=== PATIENT | male | born 1955 | race Caucasian/White ===

== ENCOUNTER 2023-07-14 07:41 | Emergency (ER) | payer MEDICARE, OTHER, SELFPAY ==
[2023-07-14 07:57] VITALS: BP 164/92
[2023-07-14] MEDS: DECADRON 10 MG PO (09:27)
[2023-07-14] MEDS: TORADOL 30 MG IM (09:27)
[2023-07-14] MEDS: VALIUM 5 MG PO (09:27)
--- NOTE | 2023-07-14 09:32 | ED.GENMED ---
History of Present Illness
General
Chief Complaint: Back Pain
Source: patient and spouse
Exam Limitations: none
Time Seen by Provider: 07/14/23 08:44
Nursing documentation reviewed up to this point in time: agreed with
Travel History
Have you had any contact with someone who has COVID-19?: No
Do you have any symptoms of coronavirus? Fever > 100 degrees, chills, cough, shortness of breath, sore throat, loss of taste or smell, muscle aches, or headache?: No
History of Present Illness
History of Present Illness:
68-year-old male past medical history of heart disease hyperlipidemia presenting to the emergency department with concerns of low back pain to his left side rating on the left leg to the left calf going on over the past few days has been trying
Advil at home without relief. Denies numbness weakness claims it is very positional denies any fevers. No change in bowel or bladder
Review of Systems
Review of Systems
Allergies reviewed?: Yes
All Other Systems: ROS reviewed and negative except as documented in HPI and ROS
Phy Exam
Physical Exam
Physical Exam:
GENERAL: Alert , in no apparent distress
EYE: pupils equal and reactive
NECK: Supple, no significant adenopathy.
ENT: o/p clr, mmm.
CARDIAC: Regular rate and rhythm .
LUNGS: Clear breath sounds bilaterally, no acute respiratory distress, no wheezes/rales/rhonchi
ABDOMEN: Soft, without focal tenderness, no r/g, no cvat
NEUROLOGICAL: Alert and oriented, no focal neuro deficits
SKIN: Warm and dry, skin intact.
MUSCULOSKELETAL: No edema, well perfused.
PSYCH: Normal and appropriate interaction.
Course
Orders/Labs/Results
Orders:
Orders
07/14/23 08:03
Acetaminophen [Tylenol] 1,000 mg PO NOW STA
07/14/23 09:12
Dexamethasone [Decadron] 10 mg PO NOW STA
Diazepam [Valium] 5 mg PO NOW STA
Ketorolac [Toradol] 30 mg IM NOW STA
07/14/23 09:13
Lumbar Spine, 2 or 3 View [CR Lumbar Spine 2 Or 3 Views] Urgent
Comment:
Reason For Exam: low back pain
07/14/23 12:22
Oxycodone [Roxicodone] 10 mg PO NOW STA
Vital Signs
Initial and Last Documented VS:
Initial Vital Signs
Temp Pulse Resp BP Pulse Ox
98.1 F 68 20 164/92 97
07/14/23 07:57 07/14/23 07:57 07/14/23 07:57 07/14/23 07:57 07/14/23 07:57
Last Documented Vital Signs
Temp Pulse Resp BP Pulse Ox
98.1 F 68 20 164/92 97
07/14/23 07:57 07/14/23 07:57 07/14/23 07:57 07/14/23 07:57 07/14/23 07:57
MDM/Problems Addressed
MDM/Problems Addressed:
68-year-old male presenting to the emergency department today with concerns of left low back pain rating down the left leg over the past few days. He has been taking ibuprofen at home without relief. Upon arrival vital signs are normal he denies
any fevers no change in bowel or bladder function normal sensation to legs bilaterally. X-ray showing arthritic changes otherwise patient did have improvement with medications stable for outpatient management advised for close outpatient follow-up.
Return precautions given.
*Critical Care Note
Total Time (30-74mins, 75-104mins- exclusive of procedures): Not Applicable
ED Attending Note
-
Portions of this chart may have been created with voice recognition software.� Occasional wrong word or��sound alike� substitutions may have occurred due to the inherent limitations of voice recognition software.
Discharge Plan
Departure
Patient Disposition: Home (Routine Discharge)
Date of Disposition: 07/14/23
Time of Disposition: 13:05
Patient with high blood pressure during this ER visit?: No
Condition: Good
Covid-19: Not Applicable
Discharge Problem:
Low back pain, Radicular pain
Instructions: Low Back Pain (DC), Radiculopathy (DC)
Prescriptions:
New
diazepam [Valium] 5 mg tablet
5 mg PO BID PRN (Reason: muscle spasm) Qty: 7 0RF
prednisone 50 mg tablet
50 mg PO DAILY 4 Days Qty: 4 0RF
No Action
multivitamin 1 EACH tablet
1 ea PO DAILY
aspirin [Adult Aspirin Regimen] 81 MG tablet,delayed release (DR/EC)
81 mg PO DAILY
vitamin B complex 1 TAB tablet
1 tab PO DAILY
cholecalciferol (vitamin D3) [Vitamin D3] 1,000 UNIT capsule
1,000 unit PO DAILY
omega 4-xke-clf-fish oil [Fish Oil] 1 EACH capsule
2 ea PO DAILY
atorvastatin 40 MG tablet
40 mg PO DAILY Qty: 90 3RF
ibuprofen [Advil] 200 MG tablet
400 mg PO Q6HPRN PRN (Reason: back pain) Qty: 0 0RF
tamsulosin 0.4 mg Capsule
0.4 mg PO DAILY
clopidogrel [clopidogrel] 75 mg tablet
75 mg PO DAILY Qty: 90 10RF
nitroglycerin 0.4 MG tablet, sublingual
0.4 mg sublingual [id number] PRN (Reason: chest pain) Qty: 25 2RF
Referrals:
Lexy Rausch MD [Family Provider] -
Miguel Patel MD [Active] - Follow up in 5-7 days
Activity Restrictions/Additional Instructions:
You came to the emergency department today with concerns of back pain. Please focal closely with the back doctor. Please take the prescribed medications. Return to the emergency department for any worsening, new or concerning symptoms.
Interventions
Interventions:
*Risk Screen - Suicide Last Done: 07/14/23 09:05
*General Assessment Last Done: 07/14/23 09:02
*Neglect/Abuse Screening Last Done: 07/14/23 09:02
ED-Musculoskeletal Assessment Last Done: 07/14/23 09:02
Discharge Date and Time
Print Language: POLISH
[2023-07-14] MEDS: ROXICODONE 10 MG PO (12:34)
[2023-07-14 13:53] VITALS: BP 130/82
== END 2023-07-14 14:09 | disposition home or self-care (01) ==
LOC: EMR 07:41
PROVIDERS: EMERGENCY PHYSICIAN Emergency Medicine; FAMILY PHYSICIAN Internal Medicine
DX: M54.50 Low back pain, unspecified (principal); M51.16 Intervertebral disc disorders with radiculopathy, lumbar region; I51.9 Heart disease, unspecified; E78.00 Pure hypercholesterolemia, unspecified
CPT/HCPCS: 99283; 96372; 72100

== ENCOUNTER 2023-07-16 10:27 | Emergency (ER) | payer MEDICARE, OTHER, SELFPAY ==
[2023-07-16 10:28] VITALS: BP 156/74
--- NOTE | 2023-07-16 12:05 | ED.GENMED ---
History of Present Illness
General
Chief Complaint: Back Pain
Source: patient
Exam Limitations: none
Time Seen by Provider: 07/16/23 12:00
Travel History
Have you had any contact with someone who has COVID-19?: No
Do you have any symptoms of coronavirus? Fever > 100 degrees, chills, cough, shortness of breath, sore throat, loss of taste or smell, muscle aches, or headache?: No
History of Present Illness
History of Present Illness:
See MDM
Past History
Past History
ED Past Medical History: CAD and Hypercholesterolemia
ED Past Surgical History: Orthopedic
Social History
Tobacco: Non-smoker
Alcohol: None
Phy Exam
Physical Exam
Physical Exam:
See MDM
Course
Orders/Labs/Results
Orders:
Orders
07/16/23 12:05
HYDROmorphone [Dilaudid] 1 mg IM NOW STA
Ketorolac [Toradol] 30 mg IM NOW STA
07/16/23 12:50
Oxycodone/Acetaminophen [Percocet 5/325] 1 tablet PO NOW STA
Vital Signs
Initial and Last Documented VS:
Initial Vital Signs
Temp Pulse Resp BP Pulse Ox
98.1 F 75 16 156/74 98
07/16/23 10:28 07/16/23 10:28 07/16/23 10:28 07/16/23 10:28 07/16/23 10:28
Last Documented Vital Signs
Temp Pulse Resp BP Pulse Ox
98.1 F 60 18 156/89 96
07/16/23 10:28 07/16/23 12:53 07/16/23 12:53 07/16/23 12:53 07/16/23 12:53
MDM/Problems Addressed
Differential Diagnosis Includes:
HPI and MDM Narrative:
68-year-old male presenting with worsening left sciatic pain. He was recently seen in the emergency department and had an x-ray and was placed on Valium and steroids. Patient states pain is persistent. He denies weakness but complains of numbness
and pain going down his left leg.
On exam, he is uncomfortable. Patient already had an x-ray performed. He is following up with Spine / pain management in 2 weeks
Will give IM Dilaudid and IM Toradol and continue to monitor
Physical exam
General: Mildly uncomfortable
HEENT: protecting airway
Neck: appears supple
CV: No evidence of cyanosis
Resp: No accessory muscle use
Abd: Non-distended
Back: Spasm and tenderness noted to left paralumbar musculature
Extremities: No deformities. Left leg neurovascular intact
Neuro: alert
Psych: Normal affect
Skin: Intact
Problems Addressed including Acute and Chronic Conditions affecting care:
1. Sciatic pain
Acuity: acute
Prognosis: stable
Details: Given persistent symptoms, will give IM Dilaudid and IM Toradol and continue to monitor
Updates
On reassessment, pain has drastically improved. Patient now sitting in the chair fully dressed and feels comfortable going home
Differential Diagnosis (but not limited to): Muscle spasm, sciatic pain
Testing considered: CT abdomen/pelvis
Drug therapy (if applicable): OTC meds, please see d/c instruction regarding Rx drugs
Amount and/or Complexity of Data Reviewed
Clinical info obtained from: Patient
External data reviewed: N/A
Labs I independently reviewed (but not limited to): N/A
Radiology: N/A
Pulse Ox: not hypoxic
EKG independently reviewed: N/A
Deep Fryer Assembler: N/A
Critical Care: N/A
Risk of Complication:
Social Determinants of health: Good social support
Discussed with other providers: N/A
Escalation of Care includes Admit/Obs: After being observed in the Emergency Department, pt stable for discharge.
Occasional wrong word or 'sound a like' substitutions may have occurred due to the inherent limitations of voice recognition software. Read the chart carefully and recognize, using context, where substitutions have occurred.
*Critical Care Note
Total Time (30-74mins, 75-104mins- exclusive of procedures): Not Applicable
ED Attending Note
-
Portions of this chart may have been created with voice recognition software.� Occasional wrong word or��sound alike� substitutions may have occurred due to the inherent limitations of voice recognition software.
Discharge Plan
Departure
Patient Disposition: Home (Routine Discharge)
Date of Disposition: 07/16/23
Time of Disposition: 13:15
Patient with high blood pressure during this ER visit?: Yes
Discharge Problem:
Sciatica
Instructions: Sciatica (DC), BLOOD PRESSURE
Prescriptions:
New
diclofenac potassium 50 mg tablet
50 mg PO BID Qty: 20 0RF
oxycodone 5 mg tablet
5 mg PO Q8H PRN (Reason: Pain) Qty: 14 0RF
No Action
multivitamin 1 EACH tablet
1 ea PO DAILY
aspirin [Adult Aspirin Regimen] 81 MG tablet,delayed release (DR/EC)
81 mg PO DAILY
vitamin B complex 1 TAB tablet
1 tab PO DAILY
cholecalciferol (vitamin D3) [Vitamin D3] 1,000 UNIT capsule
1,000 unit PO DAILY
omega 1-ljc-nxh-fish oil [Fish Oil] 1 EACH capsule
2 ea PO DAILY
atorvastatin 40 MG tablet
40 mg PO DAILY Qty: 90 3RF
ibuprofen [Advil] 200 MG tablet
400 mg PO Q6HPRN PRN (Reason: back pain) Qty: 0 0RF
tamsulosin 0.4 mg Capsule
0.4 mg PO DAILY
clopidogrel [clopidogrel] 75 mg tablet
75 mg PO DAILY Qty: 90 10RF
nitroglycerin 0.4 MG tablet, sublingual
0.4 mg sublingual [id number] PRN (Reason: chest pain) Qty: 25 2RF
diazepam [Valium] 5 mg tablet
5 mg PO BID PRN (Reason: muscle spasm) Qty: 7 0RF
prednisone 50 mg tablet
50 mg PO DAILY 4 Days Qty: 4 0RF
Referrals:
Lexy Rausch MD [Family Provider] -
Activity Restrictions/Additional Instructions:
Please return for any worsening symptoms.
You may return at any time if you have further concerns.
Please follow up with your doctor at the first available appointment, preferably this week.
You were given a prescription for narcotics. If you require this pain medicine, please take a daily [id number] stool softener to avoid constipation.
Thank you for choosing [facility].
Interventions
Interventions:
*Risk Screen - Suicide Last Done: 07/16/23 10:28
*General Assessment Last Done: 07/16/23 10:28
*Neglect/Abuse Screening Last Done: 07/16/23 10:28
ED- Fall Risk Assessment Last Done: 07/16/23 12:57
*ED COVID-19 Vaccine History Last Done: 07/16/23 12:57
ED-Musculoskeletal Assessment Last Done: 07/16/23 12:00
Discharge Date and Time
Print Language: DIVEHI
[2023-07-16] MEDS: TORADOL 30 MG IM (12:10)
[2023-07-16] MEDS: DILAUDID 1 MG IM (12:10)
[2023-07-16] MEDS: PERCOCET 5/325 1 TABLET PO (12:52)
[2023-07-16 12:53] VITALS: BP 156/89
== END 2023-07-16 13:22 | disposition home or self-care (01) ==
LOC: EMR 10:27
PROVIDERS: EMERGENCY PHYSICIAN Student in an Organized Health Care Education/Training Program; FAMILY PHYSICIAN Internal Medicine
DX: M54.30 Sciatica, unspecified side (principal); E78.00 Pure hypercholesterolemia, unspecified; I25.10 Atherosclerotic heart disease of native coronary artery without angina pectoris
CPT/HCPCS: 99283; 96372

== ENCOUNTER 2023-07-20 16:37 | Inpatient (IN) | payer MEDICARE, OTHER, SELFPAY ==
[2023-07-20 08:44] VITALS: BP 169/96
--- NOTE | 2023-07-20 09:28 | ED.GENMED ---
History of Present Illness
<JERRI Fraser - Last Filed: 07/20/23 14:37>
General
Chief Complaint: Back Pain
Source: patient
Exam Limitations: none
Time Seen by Provider: 07/20/23 09:20
Nursing documentation reviewed up to this point in time: agreed with
Travel History
Have you had any contact with someone who has COVID-19?: No
Do you have any symptoms of coronavirus? Fever > 100 degrees, chills, cough, shortness of breath, sore throat, loss of taste or smell, muscle aches, or headache?: No
History of Present Illness
History of Present Illness:
68-year-old male presents to the ER for evaluation of back pain and sciatica. Patient reports this is the third visit since July 13. He was seen here July 05 as well as July 15. He has been diagnosed with sciatica and is scheduled for an MRI this
Thursday with [facility] and also has an appointment with Dr. Patel pain management. He has finished his steroids on Thursday. He has been taking his diclofenac and prescribed oxycodone 5 mg along with Tylenol without relief. He
complains of intense pain throbbing spasming. He is unable to sleep. He last took his oxycodone 5 mg this morning. At 6:30 AM. He continues to deny any loss of bowel or bladder. He simply cannot take the pain.
Pt has CAD history of stents.
Past History
<JERRI Fraser - Last Filed: 07/20/23 14:37>
Past History
ED Past Medical History: CAD and Hypercholesterolemia
ED Past Surgical History: Orthopedic
Social History
Tobacco: Non-smoker
Alcohol: None
Review of Systems
<JERRI Fraser - Last Filed: 07/20/23 14:37>
Review of Systems
Allergies reviewed?: Yes
All Other Systems: ROS reviewed and negative except as documented in HPI and ROS
Constitutional: Reports no symptoms; Denies fever, fatigue or chills
Respiratory: Reports no symptoms
Cardiac: Reports no symptoms
ABD/GI: Reports no symptoms
: Reports no symptoms; Denies incontinence
Musculoskeletal: Reports back pain ( Left-sided back pain which radiates to left leg.)
Skin: Reports no symptoms
Neurological: Denies numbness
Hematologic/Lymphatic: Reports no symptoms
Psychiatric: Reports no symptoms
Phy Exam
<JERRI Fraser - Last Filed: 07/20/23 14:37>
General Physical Exam
General Presentation: no apparent distress
General age: appears stated age
General Skin: warm and dry
General Habitus: normal
General Mental: alert
General Hydration: appears well hydrated
Neurological Exam
Neurological Exam: alert, oriented x3 and other (Normal distal sensation to bilateral lower extremities normal dorsiflexion plantarflexion)
Musculoskeletal Exam
Musculoskeletal Exam: other (No bony midline tenderness however pain with changing position)
Skin Exam
Skin Exam: normal color and warm/dry
Psychiatric Exam
Psychiatric Exam: normal mood/affect
Course
<JERRI Fraser - Last Filed: 07/20/23 14:37>
Orders/Labs/Results
Orders:
Orders
07/20/23 09:33
IV Insert/Care/Rem.- Treatment PRN
Dexamethasone Sod Phosphate [Decadron] 10 mg IV NOW STA
07/20/23 09:34
MR Lumbar Without Contrast Urgent
Comment:
Reason For Exam: pain low back radiating to left leg
OK for patient to be off Cardiac Monitoring for MRI: Yes
Recent pill cam endoscopy?: No
HYDROmorphone [Dilaudid] 1 mg IV NOW STA
07/20/23 14:32
Complete Blood Count/With Diff Urgent
Comprehensive Metabolic Panel Urgent
Urinalysis Reflex To Culture Urgent
Vital Signs
Initial and Last Documented VS:
Initial Vital Signs
Temp Pulse Resp BP Pulse Ox
97.7 F 69 16 169/96 98
07/20/23 08:44 07/20/23 08:44 07/20/23 08:44 07/20/23 08:44 07/20/23 08:44
Last Documented Vital Signs
Temp Pulse Resp BP Pulse Ox
97.7 F 69 16 169/96 98
07/20/23 08:44 07/20/23 08:44 07/20/23 08:44 07/20/23 08:44 07/20/23 08:44
<Chan Watson MD - Last Filed: 07/20/23 14:54>
Orders/Labs/Results
Orders:
Orders
07/20/23 09:33
IV Insert/Care/Rem.- Treatment PRN
Dexamethasone Sod Phosphate [Decadron] 10 mg IV NOW STA
07/20/23 09:34
MR Lumbar Without Contrast Urgent
Comment:
Reason For Exam: pain low back radiating to left leg
OK for patient to be off Cardiac Monitoring for MRI: Yes
Recent pill cam endoscopy?: No
HYDROmorphone [Dilaudid] 1 mg IV NOW STA
07/20/23 14:32
Complete Blood Count/With Diff Urgent
Comprehensive Metabolic Panel Urgent
Urinalysis Reflex To Culture Urgent
Vital Signs
Initial and Last Documented VS:
Initial Vital Signs
Temp Pulse Resp BP Pulse Ox
97.7 F 69 16 169/96 98
07/20/23 08:44 07/20/23 08:44 07/20/23 08:44 07/20/23 08:44 07/20/23 08:44
Last Documented Vital Signs
Temp Pulse Resp BP Pulse Ox
97.7 F 69 16 169/96 98
07/20/23 08:44 07/20/23 08:44 07/20/23 08:44 07/20/23 08:44 07/20/23 08:44
<JERRI Fraser - Last Filed: 07/20/23 14:37>
MDM/Problems Addressed
Differential Diagnosis Includes:
Not limited to sciatica herniated disc radiculopathy
MDM/Problems Addressed:
Patient is a 60-year-old male presenting to the ER for the third visit because of acute left-sided back pain which radiates to left leg. He has completed steroids is on diclofenac and oxycodone at home without relief. He is very uncomfortable
though no neurological deficits. MRI scheduled for this coming Thursday however radiology did approve MRI here in the ER and MRI does show severe findings, large 1.9 cm left subarticular inferior disc extrusion at L5-S1 causing very severe left
lateral recess stenosis and descending left level L5 nerve root impingement. Other additional findings noted. Patient is very uncomfortable. I spoke with neurosurgery Dr. Brii Fink who will see pt and likely offer surg this admission.
Pt adm to hospitalist service.
<JERRI Fraser - Last Filed: 07/20/23 14:37>
*Radiology
Radiology exam reviewed: radiology read reviewed
*Pulse Oximetry
Patient hypoxic: no
*Critical Care Note
Total Time (30-74mins, 75-104mins- exclusive of procedures): Not Applicable
<JERRI Fraser - Last Filed: 07/20/23 14:37>
Patient Management
Discussion with other providers: Biomedical Equipment Support Specialist (DR Brii Fink of neurosurg )
ED Attending Note
<JERRI Fraser - Last Filed: 07/20/23 14:37>
-
Portions of this chart may have been created with voice recognition software.� Occasional wrong word or��sound alike� substitutions may have occurred due to the inherent limitations of voice recognition software.
<Chan Watson MD - Last Filed: 07/20/23 14:54>
ED Attending Note
Patient seen and examined by attending physician: Yes
ED Attending Note:
Patient presents to ED secondary to worsening left lower back pain over the past 2 weeks. Patient has been evaluated multiple times for similar complaint in ED recently. In addition, patient has been evaluated by painting department supervisor who has
ordered MRI lumbar spine, scheduled in 2 days. Denies fever or chills. Denies direct trauma. Denies urinary or bowel incontinence. Denies loss of sensation or weakness. Patient reports difficulty ambulating secondary to pain.
Physical Exam
General: moderate painful distress, not acutely ill. afebrile
Head: nc/at. eomi
Neck: supple. normal range of motion.
Abdomen: normal bowel sounds. not tender.
Back: no midline tenderness. moderate left lower back tenderness, with positive straight leg raise at 30 degrees.
Neuro: alert and oriented. no focal neurological deficits
Skin: no rash
Psychiatric: well kept. interactive and cooperative
Extremities: no edema. no calf tenderness.
MRI report reviewed and discussed with neurosx () - recommends admission under hospitalist service for pain control and to discuss potential surgical options.
Discharge Plan
Departure
Patient Disposition: Admit
Date of Disposition: 07/20/23
Time of Disposition: 14:36
Admit to: Med/Surg
Admit to doctor: hospitalist
Presentation/result/management discussed w/ accepting MD/DO: Hospitalist
Patient with high blood pressure during this ER visit?: Yes
Condition: Fair
Covid-19: Not Applicable
Discharge Problem:
acute lumbar disc extrusion, Sciatica
Prescriptions:
No Action
multivitamin 1 EACH tablet
1 ea PO DAILY
aspirin [Adult Aspirin Regimen] 81 MG tablet,delayed release (DR/EC)
81 mg PO DAILY
vitamin B complex 1 TAB tablet
1 tab PO DAILY
cholecalciferol (vitamin D3) [Vitamin D3] 1,000 UNIT capsule
1,000 unit PO DAILY
omega 0-fii-zhb-fish oil [Fish Oil] 1 EACH capsule
2 ea PO DAILY
atorvastatin 40 MG tablet
40 mg PO DAILY Qty: 90 3RF
ibuprofen [Advil] 200 MG tablet
400 mg PO Q6HPRN PRN (Reason: back pain) Qty: 0 0RF
tamsulosin 0.4 mg Capsule
0.4 mg PO DAILY
clopidogrel [clopidogrel] 75 mg tablet
75 mg PO DAILY Qty: 90 10RF
nitroglycerin 0.4 MG tablet, sublingual
0.4 mg sublingual [id number] PRN (Reason: chest pain) Qty: 25 2RF
diazepam [Valium] 5 mg tablet
5 mg PO BID PRN (Reason: muscle spasm) Qty: 7 0RF
prednisone 50 mg tablet
50 mg PO DAILY 4 Days Qty: 4 0RF
diclofenac potassium 50 mg tablet
50 mg PO BID Qty: 20 0RF
oxycodone 5 mg tablet
5 mg PO Q8H PRN (Reason: Pain) Qty: 14 0RF
Referrals:
Lexy Rausch MD [Family Provider] -
Interventions
Interventions:
*Risk Screen - Suicide Last Done: 07/20/23 14:09
*Neglect/Abuse Screening Last Done: 07/20/23 14:09
*ED COVID-19 Vaccine History Last Done: 07/20/23 08:44
ED-Musculoskeletal Assessment Last Done: 07/20/23 09:05
Discharge Date and Time
Print Language: KOSOVAN
[2023-07-20] MEDS: DECADRON 10 MG IV (09:58)
[2023-07-20] MEDS: DILAUDID 1 MG IV ×2 (09:59→17:10)
[2023-07-20 14:57] VITALS: BP 155/91
--- NOTE | 2023-07-20 16:01 | HPS.HSE ---
Addendum entered and electronically signed by Jovanni Brown MD 07/20/23 16:59:
I saw and examined the patient.
The REWARDS CONSULTANT or PA's note was reviewed and I agree with the note.
Comment:
CVS: S1-S2 normal
Chest: CTA B/L
Abdomen: Soft, NT / Bowel sounds present
Extremities: No edema, normal pulses
OSTOMY CARE NURSE: mild weakness Left foot dorsiflexion. (L5/S1)
#Severe Back Pain with Radiculopathy secondary to L5 Nerve Root Impingement and Spinal Stenosis
-Consult Neurosurgery
-Continue Decadron 4mg q8h
-Continue Tylenol 1000mg TID
-Continue Toradol for mild, Oxycodone for moderate pain and Dilaudid for severe pain
-Lidoderm patch
#Coronary Artery Disease s/p Multiple Stents (most recent Mar 2022)
-Hold aspirin for possible surgical intervention
#Hyperlipidemia
-Continue atorvastatin
#DVT prophylaxis: SCDs
#Code Status: Full Code
D/W
D/W RN
Original Note:
Family Physician
-
Family Physician: Lexy Rausch
Chief Complaint
-
Back Pain
History of Present Illness
This is a 68 year old male with past medical history of hyperlipidemia and coronary artery disease presents to the emergency department with low back pain radiating down the left leg for 1 week. Patient reports he has been to the emergency
department 2 times before, 07/14/23 and 07/16/23, with similar symptoms but states that this episode is worse than the others. He notes the pain starts in his low back and radiates down the posterior left leg into the left heel. He reports the leg
feels slightly weak and that the symptoms worsen with weight bearing. Patient rates the pain at 10/10 and that Dilaudid helped relieve some of his pain this morning but the pain has returned. Patient denies numbness and tingling in the leg, urinary
or bowel incontinence, or saddle anesthesia. Patient denies fevers, sweats or chills.
Medical History
Past Medical History
Past Medical History: Reports Other
Additional Past Medical History:
Coronary Artery Disease s/p Multiple Stents (most recent Mar 2022)
Hyperlipidemia
Past Surgical History: Reports Other
Additional Past Surgical History:
Discectomy
Social History
Tobacco: Former Smoker
Alcohol: None
Personal:
Living: With Family
Family History
Family History: Not pertinent
Allergies / Home Medications
Allergies reflects when Allergies were last updated in [facility].
Home Medications with original date entered in [facility]
Allergy/Medication List:
Allergies
Allergy/AdvReac Type Severity Reaction Status Date / Time
No Known Allergies Allergy Verified 07/20/23 08:46
Home Medications
aspirin 81 mg tablet,delayed release (Adult Aspirin Regimen) 81 mg PO DAILY 12/27/18
cholecalciferol (vitamin D3) 25 mcg (1,000 unit) capsule (Vitamin D3) 1,000 unit PO DAILY 12/27/18
omega 2-tui-hhn-fish oil 300 mg-1,000 mg capsule (Fish Oil) 2 ea PO DAILY 12/27/18
nitroglycerin 0.4 mg sublingual tablet 0.4 mg sublingual [id number] PRN chest pain #25 tabs 04/04/22
diclofenac potassium 50 mg tablet 50 mg PO BID #20 tabs 07/16/23
acetaminophen 500 mg tablet (Tylenol Extra Strength) 1,000 mg PO Q6HPRN PRN mild pain 07/20/23
atorvastatin 80 mg tablet 80 mg PO DAILY 07/20/23
cyanocobalamin (vitamin B-12) 1,000 mcg tablet 1,000 mcg PO DAILY 07/20/23
latanoprost 0.005 % eye drops 1 drp BOTH EYES HS 07/20/23
oxycodone 5 mg tablet 5 mg PO Q8HPRN PRN severe pain 07/20/23
Review of Systems
-
A 12 point ROS was completed and negative except as noted: Yes
Constitutional: Denies Fever or Chills
Respiratory: Denies Cough or Trouble Breathing
Cardiac: Denies Chest Pain or Palpitations
Musculoskeletal: Reports See HPI
Physical Exam
Vital Signs
Vital Signs
Temp Pulse Resp BP Pulse Ox
97.7 F 64 16 155/91 98
07/20/23 08:44 07/20/23 14:57 07/20/23 08:44 07/20/23 14:57 07/20/23 08:44
Physical Exam
General: Well Developed, Well Nourished and Pain (Frequently changing positions on the stretcher)
HEENT: Anicteric and Moist mucous membranes
Respiratory: Clear and Non Labored Respirations
Cardiac: S1/S2 and Regular Rhythm
GI: Soft and Non Tender
Rectal: Deferred by Provider
Musculoskeletal: No Clubbing, No Cyanosis, No Edema and Other (Limited due to pain)
Skin: Warm and Dry
Neuro: Awake, Alert and Oriented
Data Reviewed
-
MRI: Report Reviewed by me
Lab Data: Labs Reviewed by me
Impression/Plan
-
Severe Back Pain with Radiculopathy secondary to L5 Nerve Root Impingement and Spinal Stenosis
-Consult Neurosurgery
-Continue Decadron 4mg q8h
-Continue Tylenol 1000mg TID
-Continue Toradol for mild, Oxycodone for moderate pain and Dilaudid for severe pain
Coronary Artery Disease s/p Multiple Stents (most recent Mar 2022)
-Hold aspirin for possible surgical intervention
Hyperlipidemia
-Continue atorvastatin
DVT proph: SCDs
Code Status: Full Code
[2023-07-20 17:22] VITALS: BP 158/95
[2023-07-20 17:26] LABS: % Immature Granulocytes 0.3 % (0-0.5); % Lymphocytes 8.2 % (20.5-51.1); % Neutrophils 90.5 % (42.2-75.2); Absolute Lymphocytes 0.5 10^3/uL (1.2-3.4); Absolute Monocytes 0.1 10^3/uL (0.1-0.6); Absolute Neutrophils 5.3 10^3/uL (1.4-6.5); Hemoglobin 15.6 g/dL (13.0-18.0); Mean Corp Hgb Conc. 36.3 g/dL (33.0-37.0); Mean Corpuscular Hgb 30.9 pg (27.0-31.0); Mean Corpuscular Volume 85.1 fL (80.0-94.0); Mean Platelet Volume 9.5 fL (7.4-10.4); Nucleated Red Blood Cells % 0 % (-); Platelet Count 188 10^3/uL (130-400); Red Blood Cell Count 5.05 10^6/uL (4.70-6.10); Red Cell Dist. Width 13.2 % (11.5-14.5); White Blood Cell Count 5.9 10^3/uL (4.8-10.8)
--- NOTE | 2023-07-20 17:27 | CON.NS ---
Consultation
-
Date/Time Consultation Performed: 07/20/2023; 17:30
Performing Provider: Sonam
Chief Complaint
History of Present Illness
This is a neurosurgical consultation on a 68-year-old gentleman that presented to the emergency room with severe low back pain, left lower extremity radiculopathy for approximate 1 week. He had been to the emergency room several times prior, but
reported that his pain continues to progressively get worse. He reports pain that starts in his low back, radiates down the posterior aspect of his left leg, to his left heel. He also feels that the left leg is weak. He has been attempting to
control his pain symptoms with a course of narcotics and steroids at home, but continues to have refractory pain. He denies any bowel or bladder changes. He had an MRI of the lumbar spine which did demonstrate large left L5-S1 disc herniation. He
does have a past medical history significant for coronary artery disease, status post multiple stents, the most recent was in March 2022, and hyperlipidemia.
Patient seen and examined in ED. at bedside.
Denies any obvious weakness in legs.
Review of Systems
-
Extensive review of systems was performed, which included constitutional, ENT, cardiovascular, respiratory, GI, , neurologic, endocrinologic, musculoskeletal, neurologic, and hematologic, which is negative, except for as stated in HPI.
Medication and Allergies
Home Medications
Home Medications
�Medication �Instructions �Recorded
aspirin 81 mg tablet,delayed 81 mg PO DAILY 12/27/18
release (Adult Aspirin Regimen)
cholecalciferol (vitamin D3) 25 1,000 unit PO DAILY 12/27/18
mcg (1,000 unit) capsule (Vitamin
D3)
omega 0-qoa-rci-fish oil 300 2 ea PO DAILY 12/27/18
mg-1,000 mg capsule (Fish Oil)
nitroglycerin 0.4 mg sublingual 0.4 mg sublingual [id number] PRN 04/04/22
tablet chest pain #25 tabs
diclofenac potassium 50 mg tablet 50 mg PO BID #20 tabs 07/16/23
acetaminophen 500 mg tablet 1,000 mg PO Q6HPRN PRN mild pain 07/20/23
(Tylenol Extra Strength)
atorvastatin 80 mg tablet 80 mg PO DAILY 07/20/23
cyanocobalamin (vitamin B-12) 1,000 mcg PO DAILY 07/20/23
1,000 mcg tablet
latanoprost 0.005 % eye drops 1 drp BOTH EYES HS 07/20/23
oxycodone 5 mg tablet 5 mg PO Q8HPRN PRN severe pain 07/20/23
Allergies
Allergies
Allergy/AdvReac Type Severity Reaction Status Date / Time
No Known Allergies Allergy Verified 07/20/23 08:46
Physical Exam
-
Exam:
Awake, alert, no apparent distress.
Cranial 2-12 gross intact.
Motor: 5/5 strength bilateral upper extremities.
Lower extremities:
No pronator drift.
Head is normocephalic atraumatic.
Neck is supple
Regular rate and rhythm
Abdomen is soft
Pulses are palpable
Extremities are warm
MRI of lumbar spine performed 07/20/2023 approximate 1:30 PM was reviewed. There is evidence of a large left L5-S1 disc herniation with caudal extrusion and severe impingement of the left S1 nerve root.
Problems
-
Problem Status Onset Code
Sciatica M54.30
Assessment / Plan
-
This is a 68-year-old gentleman that presents with severe left lower extremity radiculopathy.
MRI lumbar spine confirms large left L5-S1 disc herniation. Patient has history of coronary artery disease, on aspirin 81 mg.
Agree with holding aspirin for likely surgical intervention during this hospitalization, potentially Thursday07/24/2023.
Cardiology consultation for cardiac clearance.
Agree with dexamethasone 4 mg every 8 hours. Can also consider addition of gabapentin 300 mg 3 times daily for neuropathic pain relief.
Patient can go home per my specialty: No
[2023-07-20 17:43] LABS: ALT (SGPT) 60 U/L (0-50); AST (SGOT) 38 U/L (17-59); Albumin 4.4 g/dl (3.5-5.0); Alkaline Phosphatase 88 U/L (38-126); Blood Urea Nitrogen 20 mg/dl (9-20); Calcium 9.9 mg/dl (8.4-10.2); Carbon Dioxide 22 mmol/L (22-30); Chloride 105 mmol/L (98-107); Glucose 139 mg/dl (70-99); Potassium 4.6 mmol/L (3.5-5.1); Sodium 135 mmol/L (135-145); Total Protein 7.2 g/dl (6.3-8.2); eGFR > 60.00
[2023-07-20 18:12] VITALS: BMI 31.1
[2023-07-20 18:13] VITALS: BP 154/93
--- NOTE | 2023-07-20 18:26 | TRANSFER ---
Pt admitted from ED into room 419-2, ambulated from stretcher to bed with standby. AAOx3, reporting 5/10 pain in back. Patient and at bedside oriented to room and plan of care. Call ramires within reach.
[2023-07-20] MEDS: DECADRON 4 MG IV (18:34)
[2023-07-20] MEDS: TYLENOL 1000 MG PO ×2 (18:34→22:11)
[2023-07-20] MEDS: DILAUDID 0.5 MG IV (22:14)
[2023-07-20] MEDS: FLEXERIL 5 MG PO (22:15)
[2023-07-20 22:52] LABS: Urine Albumin Negative (Neg - Trace); Urine Bilirubin Negative (Negative); Urine Character Clear (Clear); Urine Color Yellow; Urine Glucose 1+ (Negative); Urine Ketone Trace (Negative); Urine Leukocyte Negative (Negative); Urine Nitrite Negative (Negative); Urine Occult Blood Trace (Negative); Urine Urobilinogen Negative (Neg - 1+)
[2023-07-20 23:06] LABS: Urine Bacteria Few (Negative); Urine Squamous Cell 0-2 /LPF (Few); Urine White Cell 0-2 /HPF (0-5)
[2023-07-21 01:34] VITALS: BP 138/64
[2023-07-21] MEDS: DECADRON 4 MG IV ×3 (01:45→18:13)
[2023-07-21] MEDS: DILAUDID 0.5 MG IV ×4 (04:53→20:48)
[2023-07-21 07:00] VITALS: BP 145/83
[2023-07-21 07:25] LABS: Hematocrit 42.9 % (39.0-52.0); Hemoglobin 15.2 g/dL (13.0-18.0); Mean Corp Hgb Conc. 35.4 g/dL (33.0-37.0); Mean Corpuscular Hgb 30.6 pg (27.0-31.0); Mean Corpuscular Volume 86.3 fL (80.0-94.0); Mean Platelet Volume 9.4 fL (7.4-10.4); Platelet Count 209 10^3/uL (130-400); Red Blood Cell Count 4.97 10^6/uL (4.70-6.10); Red Cell Dist. Width 13.3 % (11.5-14.5); White Blood Cell Count 11.1 10^3/uL (4.8-10.8)
[2023-07-21] MEDS: FLEXERIL 5 MG PO ×2 (08:16→20:36)
[2023-07-21] MEDS: TYLENOL 1000 MG PO ×3 (08:16→23:24)
[2023-07-21] MEDS: LIPITOR 80 MG PO (08:16)
[2023-07-21] MEDS: MIRALAX 17 GRAMS PO (08:16)
[2023-07-21 08:18] LABS: Blood Urea Nitrogen 26 mg/dl (9-20); Calcium 9.9 mg/dl (8.4-10.2); Carbon Dioxide 22 mmol/L (22-30); Chloride 105 mmol/L (98-107); Estimated Creatinine Clearance 122 ml/min; Glucose 140 mg/dl (70-99); Potassium 4.4 mmol/L (3.5-5.1); Sodium 135 mmol/L (135-145); eGFR > 60.00
--- NOTE | 2023-07-21 11:48 | CM ---
Patient seen bedside.
IA completed.
Patient lives with spouse in a 2 story home with 5 steps to enter.
Independent prior to admission without assistive devices.
Patient drives and works.
No Hx VN or skilled rehab in the past.
PCP: Dr Rausch
Pharmacy: [facility]
Plan: home no needs anticipated.
[2023-07-21 13:06] VITALS: BP 160/91
[2023-07-21 13:18] VITALS: BP 160/91; PULSE 81; O2SAT 100
--- NOTE | 2023-07-21 15:08 | W.PN.HOSP.TC ---
Today's Communication/Plan
-
Continue pain control
Use oxycodone first to see if that can help with pain Toradol can also be used.
Use Dilaudid only if absolutely needed
Change Flexeril to twice daily scheduled to hold for sedation
Encourage out of bed
Assessment / Plan
Assessment / Plan
68-year-old man with lower extremity radiculopathy
Pain slightly better today. Able to ambulate somewhat
Cardiovascular system S1-S2 appreciated
Chest clear to auscultation
Abdomen soft and nontender
Lower extremity no edema
#Lumbar radiculopathy with severe back pain
MRI with L5-S1 disc herniation
Patient does have mild dorsiflexion abnormality left foot
Continue Decadron 4mg q8h
Continue Tylenol 1000mg TID
Continue Toradol for mild, Oxycodone 10 mg for moderate pain and Dilaudid for severe pain
Lidoderm patch
#Coronary Artery Disease s/p Multiple Stents (most recent Mar 2022)
-Hold aspirin for surgical intervention
-Cards eval preop
#Hyperlipidemia
-Continue atorvastatin
#DVT prophylaxis: SCDs
#Code Status: Full Code
D/W RN
Anticipated Discharge: 24 - 48 hours
Subjective/Interval History
-
Date of Service: July 21, 2023
Objective Data
-
Labs:
Laboratory Results
07/21/23
06:53
WBC 11.1 H
Hgb 15.2
Hct 42.9
Plt Count 209
Sodium 135
Potassium 4.4
Chloride 105
Carbon Dioxide 22
BUN 26 H
Creatinine 0.6 L
Glucose 140 H
Calcium 9.9
Vital Signs:
Vital Signs
Temp Pulse Resp BP Pulse Ox
98.2 F 66 16 145/83 96
07/21/23 07:00 07/21/23 07:00 07/21/23 07:00 07/21/23 07:00 07/21/23 07:00
[2023-07-21] MEDS: SENOKOT 17.1999999999999993 MG PO ×2 (15:12→20:35)
[2023-07-21] MEDS: ROXICODONE 10 MG PO ×2 (15:12→19:07)
--- NOTE | 2023-07-21 15:13 | CON.CAR ---
Addendum entered and electronically signed by Hemant Gutiérrez MD 07/21/23 16:17:
Patient seen and examined in collaboration with AIR POLLUTION INSPECTOR; agree with below.
-68-year-old male with coronary artery disease status-post CHINO to RCA (04/04/2022) and CHINO to LCX (12/2018) who is scheduled to undergo lumbar microdiscectomy on 07/24/2023; patient was told to hold aspirin 5 days prior to surgery.
-Cardiology consulted for preprocedural evaluation.
-The patient denies any cardiac or anginal symptoms at this time.
-Ideally, patient does not need aspirin; however, per Neurosurgery, it needs to be held for the procedure.
-Resume aspirin as soon as possible postoperatively when deemed safe by Neurosurgery.
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
-Will obtain an echocardiogram to assess baseline cardiac function; the patient currently appears to be clinically stable from a cardiac standpoint and can proceed with surgery as scheduled.
Original Note:
Consultation
Consultation Request
Date/Time Consultation Requested: 07/21/2023 15:00
Date/Time Consultation Performed: 07/21/2023 15:15
Requesting Provider: Dr. Brown
Performing Provider: JERRI Woo for Dr. Gutiérrez
Reason for Consultation: Preop risk assessment
Medical History
-
Chief Complaint: Lower back pain
History of Present Illness:
Hemant Vega is a 68-year-old male (known to Dr. 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
with a chief complaint of lower back pain. His pain radiated down his left leg. This has been ongoing for more than 1 week. He had been to the emergency department on 2 other occasions, 07/06/2023 and 07/16/2023 with similar symptoms. This episode
was worse than others. He is currently receiving pain management by both the primary service and neurosurgery. Cardiology has been consulted for risk assessment. The plan is for surgical intervention on Thursday for L5-S1 disc herniation.
Past Medical History
Past Medical History: CAD and Hypercholesterolemia
Past Surgical History: Orthopedic
Social History
Tobacco: Former Smoker
Alcohol: None
Personal:
Living: With Family
Family History
Family History: Reviewed & Not Pertinent
Allergies / Home Medications
Allergy/AdvReac Type Severity Reaction Status Date / Time
No Known Allergies Allergy Verified 07/20/23 08:46
�Medication �Instructions �Recorded �Confirmed �Type
aspirin 81 mg tablet,delayed 81 mg PO DAILY Blood Clot 12/27/18 07/20/23 History
release (Adult Aspirin Regimen) Prevention/Tx
cholecalciferol (vitamin D3) 25 1,000 unit PO DAILY Supplement 12/27/18 07/20/23 History
mcg (1,000 unit) capsule (Vitamin
D3)
omega 9-she-iry-fish oil 300 2 ea PO DAILY Supplement 12/27/18 07/20/23 History
mg-1,000 mg capsule (Fish Oil)
nitroglycerin 0.4 mg sublingual 0.4 mg sublingual [id number] PRN 04/04/22 07/20/23 Rx
tablet chest pain #25 tabs
acetaminophen 500 mg tablet 1,000 mg PO Q6HPRN PRN mild pain 07/20/23 07/20/23 History
(Tylenol Extra Strength)
atorvastatin 80 mg tablet 80 mg PO DAILY High Cholesterol 07/20/23 07/20/23 History
cyanocobalamin (vitamin B-12) 1,000 mcg PO DAILY Supplement 07/20/23 07/20/23 History
1,000 mcg tablet
latanoprost 0.005 % eye drops 1 drp BOTH EYES HS Eye Condition 07/20/23 07/20/23 History
oxycodone 5 mg tablet 5 mg PO Q8HPRN PRN severe pain 07/20/23 07/20/23 History
diclofenac potassium 50 mg tablet 50 mg PO BID Anti-Inflammatory 07/21/23 07/20/23 History
Review of Systems
-
History Source: Patient
All other systems: Negative unless noted
Respiratory: No Symptoms
Cardiac: No Symptoms
Abdomen/GI: No Symptoms
Musculoskeletal: Joint Pain (Lumbar back) and Muscle Stiffness (Lumbar back)
Neurological: Weakness (Left foot)
Physical Exam
Vital Signs
Temp Pulse Resp BP Pulse Ox
98.2 F 66 16 145/83 96
07/21/23 07:00 07/21/23 07:00 07/21/23 07:00 07/21/23 07:00 07/21/23 07:00
Lab Results
07/21/23 06:53
07/21/23 06:53
Physical Exam
General: Well Developed, Well Nourished, No Apparent Distress and Comfortable
HEENT: Normocephalic, Anicteric and Moist Mucous Membranes
Respiratory: Clear
Cardiac: S1/S2 and Regular Rhythm; Negative Peripheral Edema
Breast: Deferred by me
GI: Soft, Non Tender, Non Distended and Normal Bowel Sounds
Rectal: Deferred by Provider
Genito-urinary: No Costovertebral Tender
Musculoskeletal: No Clubbing, No Cyanosis and No Edema
Skin: Warm and Dry
Neuro: AO x 3
Hematologic/Lymphatic: No Lymphadenopathy
Psych: Calm
Impression / Plan
-
Preop risk assessment - Lumbar microdiscectomy (potentially 07/24/2023)
-EKG with sinus bradycardia
-His activity is limited by his back pain, pre back pain exacerbation was playing pickle ball and golfing without angina
-Most recent PCI 03/2022, aspirin has been on hold since admission
Coronary artery disease
-Stable without chest pain
-Left circumflex stenting in 2019
-Stenting of RCA 03/2022, proximal LAD and proximal to mid RCA disease appears similar compared to 2019 catheterization
-On atorvastatin
Dyslipidemia, most recent LDL at goal on atorvastatin 80mg, continue
Former smoker, continued cessation recommended
Data Reviewed
-
EKG: Report Reviewed by me (Sinus bradycardia, as above)
MRI: Report Reviewed by me (Lumbar spine: Large subarticular inferior disc extrusion at L5/S1 causing very severe left lateral recess stenosis and descending left L5 nerve root impingement)
Labs: Labs Reviewed by me
Old Records: Reviewed
[2023-07-21 15:25] VITALS: BP 156/76
[2023-07-21] MEDS: COLACE 100 MG PO ×2 (15:46→20:35)
[2023-07-21] MEDS: TORADOL 10 MG IV ×2 (16:01→23:25)
[2023-07-21 23:21] VITALS: BP 112/74
[2023-07-21] MEDS: XALATAN OPHTHALMIC SOLUTION 1 DROP BOTH EYES (23:24)
[2023-07-22] MEDS: DECADRON 4 MG IV ×2 (01:28→09:33)
[2023-07-22 03:32] VITALS: BP 112/61
[2023-07-22] MEDS: DILAUDID 0.5 MG IV (05:42)
[2023-07-22] MEDS: MIRALAX 17 GRAMS PO (07:50)
[2023-07-22] MEDS: FLEXERIL 5 MG PO ×2 (07:50→21:08)
[2023-07-22] MEDS: LIPITOR 80 MG PO (07:50)
[2023-07-22] MEDS: COLACE 100 MG PO ×2 (07:51→21:08)
[2023-07-22] MEDS: TYLENOL 1000 MG PO ×3 (07:51→21:08)
[2023-07-22] MEDS: SENOKOT 17.1999999999999993 MG PO ×2 (07:51→21:08)
[2023-07-22] MEDS: ROXICODONE 10 MG PO ×4 (07:51→21:17)
[2023-07-22 07:59] VITALS: BP 165/82
--- NOTE | 2023-07-22 08:30 | PN.CDI ---
CDI
- -
CDI:
Physician Documentation Request
Admit Date: 07/20/23 16:37
Dear Doctor Kevin,
Patient admitted for radiculopathy.
ER Physician Documentation: 'Patient reports this is the third visit since July 13...He has been taking his diclofenac and prescribed oxycodone 5 mg along with Tylenol without relief...He last took his oxycodone 5 mg this morning...He simply cannot
take the pain.'
Oxycodone 10 mg PO administered
07/20: 15:12, 19:07
07/21: 07:51
Dilaudid 0.5 mg IV administered
07/19: 22:14,
07/20: 04:53, 08:26, 11:27, 20:48
07/21: 05:42
If possible, please provide further specificity as outlined below:
Opioid use with dependence
Opioid use
Other
Use of terms such as suspected, likely, concern for, or probable (associated with a specific diagnosis that is being evaluated, monitored, or treated as if it exists) are acceptable and can be coded in the inpatient setting, when documented at the
time of discharge.
Thank you,
Bhavya Brooke RN, BSN
CDI Specialist
Available via [facility] text
Please use your independent medical judgment in providing your response.
--- NOTE | 2023-07-22 09:29 | W.PN.CD ---
Today's Communication / Plan
-
-Echocardiogram yesterday revealed normal cardiac function and no significant valvulopathy.
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
-Can proceed with back surgery as scheduled (relatively low risk).
Impression / Plan
-
Preop risk assessment - Lumbar microdiscectomy (potentially 07/24/2023)
-EKG with sinus bradycardia (asymptomatic).
-Echocardiogram yesterday revealed normal cardiac function and no significant valvulopathy.
-His activity is limited by his back pain, pre back pain exacerbation was playing pickle ball and golfing without angina
-Most recent PCI 03/2022, aspirin has been on hold since admission
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
-Can proceed with back surgery as scheduled (relatively low risk).
Coronary artery disease
-Remains stable without chest pain.
-Left circumflex stenting in 2019.
-Stenting of RCA 03/2022, proximal LAD and proximal to mid RCA disease appears similar compared to 2019 catheterization
-On atorvastatin.
Dyslipidemia, most recent LDL at goal on atorvastatin 80mg, continue
Former smoker, continued cessation recommended
Physical Exam
Vital Signs/Labs
Vital Signs
Temp Pulse Resp BP Pulse Ox
97.7 F 60 18 165/82 97
07/22/23 08:02 07/22/23 07:59 07/22/23 07:59 07/22/23 07:59 07/22/23 07:59
07/21/23 07/22/23 07/23/23
06:59 06:59 06:59
Actual Weight 87.26 kg
07/21/23 06:53
07/21/23 06:53
Physical Exam
Constitutional: No acute distress and Comfortable
EENT: Anicteric
Cardiovascular: Rhythm & rate is regular, Pedal edema is absent, Systolic murmur absent and S1S2 is normal
Respiratory: Respiratory effort normal and Lungs clear to auscul.
Neuro/Psych: AO x 3
Other: Skin (Warm, dry, intact)
Data Reviewed
-
Date of Service: July 22, 2023
EKG: Tracing Personally Visualized and interpreted (Telemetry: Sinus rhythm)
Echo: Tracing Personally Visualized and interpreted (Echo 08/09: LVEF 65-70%, no regional wall motion abnormalities; mild aortic regurgitation.)
Labs: Labs Reviewed by me
[2023-07-22 11:34] VITALS: BP 100/65
[2023-07-22] MEDS: TORADOL 10 MG IV (15:05)
--- NOTE | 2023-07-22 15:16 | W.PN.HOSP.TC ---
Today's Communication/Plan
-
Decrease Decadron
Assessment / Plan
Assessment / Plan
68-year-old man with lower extremity radiculopathy
Cardiovascular system S1-S2 appreciated
Chest clear to auscultation
Abdomen soft and nontender
Lower extremity no edema
Weakness L5/S1 affecting dorsiflexion of great toe left
#Lumbar radiculopathy with severe back pain
MRI with L5-S1 disc herniation
Patient does have mild dorsiflexion abnormality left foot
Continue Decadron but change to 2 mg Q8h
Continue Tylenol 1000mg TID
Continue Toradol for mild, Oxycodone 10 mg for moderate pain and Dilaudid for severe pain
Lidoderm patch
#Coronary Artery Disease s/p Multiple Stents (most recent Mar 2022)
-Hold aspirin for surgical intervention
-Cards eval preop
#Hyperlipidemia
-Continue atorvastatin
#DVT prophylaxis: SCDs
#Code Status: Full Code
D/W RN
D/W Neuro surgery
Surgery here Thursday
D/W at bed side
Anticipated Discharge: > 48 hours
Subjective/Interval History
-
Date of Service: July 22, 2023
Objective Data
-
Vital Signs:
Vital Signs
Temp Pulse Resp BP Pulse Ox
97.8 F 59 18 100/65 97
07/22/23 11:34 07/22/23 11:34 07/22/23 11:34 07/22/23 11:34 07/22/23 11:34
I&O
07/21/23 07/22/23 07/23/23
06:59 06:59 06:59
Intake Total 380 / 380
Balance 380 / 380
[2023-07-22 15:58] VITALS: BP 98/77
[2023-07-22] MEDS: DECADRON 2 MG IV (17:21)
--- NOTE | 2023-07-22 17:58 | PN.NS ---
Subjective
-
Patient seen and examined. Admits modest relief with steroids. Does admit to left lower extremity weakness. Admits to left hamstring weakness.
Physical Exam
-
Exam:
Exam:
Awake, alert, no apparent distress.
Cranial 2-12 gross intact.
Motor: 5/5 strength bilateral upper extremities.
Lower extremities:5/5 strength of bilateral lower extremities except for left gastroc weakness.
No pronator drift.
Head is normocephalic atraumatic.
Neck is supple
Regular rate and rhythm
Abdomen is soft
Pulses are palpable
Extremities are warm
MRI of lumbar spine performed 07/20/2023 approximate 1:30 PM was reviewed. There is evidence of a large left L5-S1 disc herniation with caudal extrusion and severe impingement of the left S1 nerve root.
Problems
-
Problem Status Onset Code
Sciatica M54.30
Assessment / Plan
-
This is a 68-year-old gentleman that presents with severe left lower extremity radiculopathy.
MRI lumbar spine confirms large left L5-S1 disc herniation.
Appreciate cardiology input regarding restratification/clearance for surgery.
Continue to hold aspirin.
Agree with decrease of dexamethasone. Continue with gabapentin.
Patient has been added onto the OR schedule for 07/24/2023. Keep patient n.p.o. after midnight.
I discussed with patient, and surgical procedure, and answered any questions concerns that they had.
Today's Communication
-
Hospital medicine, patient, and .
[2023-07-22 19:08] VITALS: BP 153/83
[2023-07-22] MEDS: XALATAN OPHTHALMIC SOLUTION 1 DROP BOTH EYES (21:09)
[2023-07-22 23:21] VITALS: BP 153/86
[2023-07-23] MEDS: DECADRON 2 MG IV ×3 (01:54→18:36)
[2023-07-23] MEDS: ROXICODONE 10 MG PO ×5 (01:57→19:59)
[2023-07-23 03:22] VITALS: BP 145/73
[2023-07-23] MEDS: DILAUDID 0.5 MG IV ×2 (06:37→22:31)
[2023-07-23 07:00] VITALS: BP 143/86
--- NOTE | 2023-07-23 08:37 | W.PN.CD ---
Today's Communication / Plan
-
stable from cardiac perspective for OR tomorrow
ASA on hold
monitor on tele
Impression / Plan
-
Preop risk assessment - Lumbar microdiscectomy (07/24/2023)
-EKG with sinus bradycardia (asymptomatic).
-Echocardiogram 07/20 revealed normal cardiac function, EF 65-70%, and no significant valvulopathy.
-His activity is limited by his back pain, pre back pain exacerbation was playing pickle ball and golfing without angina
-Most recent PCI 03/2022, aspirin has been on hold since admission
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
-Stable from cardiac perspective to proceed with OR
-elevated, but acceptable risk in setting of holding ASA with h/o coronary stenting
-patient denies chest pain
Coronary artery disease
-Remains stable without chest pain.
-Left circumflex stenting in 2019.
-Stenting of RCA 03/2022, proximal LAD and proximal to mid RCA disease appears similar compared to 2019 catheterization
-On atorvastatin.
Dyslipidemia, most recent LDL at goal on atorvastatin 80mg, continue
Former smoker, continued cessation recommended
Physical Exam
Vital Signs/Labs
Vital Signs
Temp Pulse Resp BP Pulse Ox
97.9 F 60 14 143/86 95
07/23/23 07:00 07/23/23 07:00 07/23/23 07:00 07/23/23 07:00 07/23/23 07:00
07/21/23 06:53
07/21/23 06:53
Physical Exam
Constitutional: No acute distress and Comfortable
EENT: Moist mucous membranes
Cardiovascular: Rhythm & rate is regular, Pedal edema is absent, JVD pressure is normal and Systolic murmur absent
Respiratory: Respiratory effort normal, Lungs clear to auscul. and Wheeze Absent
GI: Soft and Distention absent
Neuro/Psych: AO x 3
Data Reviewed
-
Date of Service: July 23, 2023
EKG: Other (sinus rhythm, sinus mami)
Echo: Report Reviewed by me
Labs: Labs Reviewed by me
--- NOTE | 2023-07-23 10:27 | W.PN.HOSP.TC ---
Today's Communication/Plan
-
Venous Doppler LLE
For OR tomorrow
Continue steroids as ordered.
Assessment / Plan
Assessment / Plan
68-year-old man with lower extremity radiculopathy
Had a BM today per pt.
Cardiovascular system S1-S2 appreciated
Chest clear to auscultation
Abdomen soft and nontender
Lower extremity no edema
Weakness L5/S1 affecting dorsiflexion of great toe left
#Lumbar radiculopathy with severe back pain
MRI with L5-S1 disc herniation
Patient does have mild dorsiflexion abnormality left foot
Continue Decadron changed to 2 mg Q8h
Continue Tylenol 1000mg TID
Continue Toradol for mild, Oxycodone 10 mg for moderate pain and Dilaudid for severe pain
Lidoderm patch
#Coronary Artery Disease s/p Multiple Stents (most recent Mar 2022)
-Hold aspirin for surgical intervention
-Cards eval preop
#Hyperlipidemia
-Continue atorvastatin
#DVT prophylaxis: SCDs. Discussed with nursing to enforce SCds as ordered.
#Code Status: Full Code
D/W RN
Has left popliteal pain unchanged , but will get an USS
Anticipated Discharge: 24 - 48 hours
Subjective/Interval History
-
Date of Service: July 23, 2023
Objective Data
-
Vital Signs:
Vital Signs
Temp Pulse Resp BP Pulse Ox
97.9 F 60 14 143/86 95
07/23/23 07:00 07/23/23 07:00 07/23/23 07:00 07/23/23 07:00 07/23/23 07:00
I&O
07/22/23 07/23/23 07/24/23
06:59 06:59 06:59
Intake Total 380 / 380 920 / 920
Balance 380 / 380 920 / 920
[2023-07-23] MEDS: FLUSH (NSS) 1 FLUSH IV (10:51)
[2023-07-23] MEDS: FLEXERIL 5 MG PO ×2 (10:52→19:59)
[2023-07-23] MEDS: TYLENOL 1000 MG PO ×3 (10:52→22:19)
[2023-07-23] MEDS: COLACE 100 MG PO (10:53)
[2023-07-23] MEDS: MIRALAX 17 GRAMS PO (10:54)
[2023-07-23] MEDS: LIPITOR 80 MG PO (10:54)
[2023-07-23] MEDS: SENOKOT 17.1999999999999993 MG PO (10:54)
[2023-07-23 11:00] VITALS: BP 168/93
--- NOTE | 2023-07-23 15:03 | CM ---
patient seen bedside.
Plan OR tomorrow.
will f/u post op to assess for homecare needs.
Plan: home, probably no needs.
[2023-07-23 16:50] VITALS: BP 146/80
[2023-07-23 19:52] VITALS: BP 149/81
[2023-07-23] MEDS: COLACE PO (20:03)
[2023-07-23] MEDS: SENOKOT PO (20:03)
[2023-07-23] MEDS: XALATAN OPHTHALMIC SOLUTION 1 DROP BOTH EYES (22:19)
[2023-07-23 23:08] VITALS: BP 159/93
[2023-07-24] VITALS (20 sets, daily range): BP systolic 146–200; BP diastolic 67–109
[2023-07-24] MEDS: DECADRON 2 MG IV ×3 (02:53→17:22)
[2023-07-24] MEDS: DILAUDID 0.5 MG IV ×6 (02:57→20:14)
[2023-07-24] MEDS: ROXICODONE 10 MG PO ×3 (06:02→23:18)
--- NOTE | 2023-07-24 06:20 | PTCARENOTE ---
Pt is scheduled for the OR this AM but there is no order for pt to be NPO. House RESIDENTIAL SUBSTANCE ABUSE COUNSELOR Yoko Browne notified, order for NPO with oral meds but no clear liquids acknowledged by this RN. Pt notified of diet order change and verbalizes understanding to
this RN.
[2023-07-24 09:06] LABS: Blood Urea Nitrogen 30 mg/dl (9-20); Calcium 9.7 mg/dl (8.4-10.2); Carbon Dioxide 23 mmol/L (22-30); Chloride 103 mmol/L (98-107); Estimated Creatinine Clearance 105 ml/min; Glucose 128 mg/dl (70-99); Potassium 4.5 mmol/L (3.5-5.1); Sodium 134 mmol/L (135-145); eGFR > 60.00
[2023-07-24] MEDS: MIRALAX PO (09:10)
[2023-07-24] MEDS: LIPITOR 80 MG PO (09:18)
[2023-07-24] MEDS: FLEXERIL 5 MG PO ×2 (09:18→20:08)
[2023-07-24] MEDS: COLACE 100 MG PO ×2 (09:18→20:08)
[2023-07-24] MEDS: TYLENOL 1000 MG PO ×3 (09:18→21:48)
[2023-07-24] MEDS: SENOKOT 17.1999999999999993 MG PO ×2 (09:18→20:08)
[2023-07-24 09:22] LABS: INR 1.02; PT 13.2 Sec (11.4-14.6)
[2023-07-24 09:23] LABS: APTT 22.8 Sec (23.4-35.0)
--- NOTE | 2023-07-24 13:54 | OR.RPT ---
Operative Report
Operative Report
Date of surgery: 07/24/2023
Surgeon: Brii Masters MD
Dictated by: Brii Masters MD
Procedure performed:
1. Left L5-S1 laminoforaminotomy for microdiscectomy.
2. Utilization of intraoperative microscope for appropriate visualization, and microscopic dissection.
3. Utilization, and interpretation of intraoperative fluoroscopy.
Preoperative diagnosis: Left L5-S1 disc herniation with radiculopathy
Postoperative diagnosis: Same
Folder Seamer Automatic: RADHA Riddle
Anesthesiologist: MD Cadence
Types of anesthesia:
1. General
2. Local
Indications for the procedure: This is a 60-year-old gentleman that presented with approximately 1 week history of severe left lower extremity radicular pain, without any inciting event. He trialed anti-inflammatory medications, steroid pack, and
pain medication without any significant improvement. He had an MRI of the lumbar spine which demonstrated a large left L5-S1 disc herniation. He was deemed candidate for microdiscectomy. All risks, benefits, and alternatives were explained to the
patient, and his family which included bleeding, infection and injury to arteries nerves veins, disc reherniation, CSF leak, the need for further procedures in the future. He expressed understanding of this, gave consent to proceed.
Procedure in detail: Patient was identified in the preoperative holding area. The planned procedure was confirmed, and all questions concerns of the patient and his family had were answered and addressed.
Patient was absolutely taken to the operating room. He was placed in the supine position. General integrity of anesthesia was induced uneventfully. Patient was then carefully positioned in the supine position to the prone position onto a [place]
table. All pressure points including his eyes, chin, bilateral elbow, chest, groin, knees were appropriately padded. A 1010 drape was placed over the gluteal fold. The L5-S1 level was localized using intraoperative fluoroscopy. This level was
marked. His lumbosacral spine was then shaved and prepped in standard surgical fashion.
After proper timeout, local anesthetic was infiltrated to the marked incision. Using family, incision is made through the skin. Dissection was then carried down to the lumbodorsal fascia using Bovie electrocautery. A unilateral incision was made
along the lateral aspect of the spinous processes at L5-S1. Subperiosteal dissection was then carried down using Bovie electrocautery. The inferior aspect of the L5 lamina, the superior aspect of the S1 lamina was then identified and dissected. A
[place] 4 dissector was placed within the interlaminar space, and intraoperative x-rays were performed, which confirmed that we were indeed at the L5-S1 level. Nelson retractors were then placed to hold the musculature laterally. The microscope
was brought in for proper visualization, and microscopic dissection. Using the [employer] match head kathy, a lamino foraminotomy was then performed by removing the inferior aspect of the L5 lamina, the superior aspect of the S1 lamina.
Ligamentum flavum was then encountered, and this was removed using 2, 3 mm Kerrison punch rongeurs. At this point, the epidural fat, and the lateral aspect of the thecal sac, and the left S1 nerve root came into view. It was under moderate
pressure. The foraminotomy was then extended out using Kerrison punch rongeurs. Then, using a [place] 4 dissector, blunt dissection was then carried out along the lateral aspect of the nerve root, and the pseudocapsule of the disc extrusion was
dissected out. Epidural veins were coagulated and cut. Using an 11 blade, the pseudocapsule was then opened in a cruciate fashion. Almost immediately, free disc material was self expressed. Additional disc material and free fragments were
removed using a micropituitary rongeur. Down pushing curettes were also utilized to further tease additional disc material from the level of the space, as well as caudally along the ventral aspect of the S1 vertebral body. At this point, the nerve
root appeared to be significantly lax. Careful inspection was then performed within the axilla of the nerve roots ensure that there was no evidence of occult disc material. Finally, [place] dissector and then a nerve hook was passed from the level
of the space caudally as well as medially. There is no evidence of this material that was palpated. This point, I elected to close. The wound was thoroughly irrigated with normal saline irrigation. Adequate hemostasis was achieved using surgical
hemostatic material, as well as bipolar electrocautery. A thin layer of Floseal was placed over the thecal sac. The retractors were removed. Additional local anesthetic was then infiltrated to the fascia musculature. I then elected to close.
The fascia was reapproximated using interrupted direct sutures. Subcutaneous fatty layer was then reapproximated using interrupted 2-0 Vicryl sutures. And lastly, the subdermal and epidermal layers were then reapproximated using interrupted
inverted 3-0 Vicryl sutures. The skin was then closed using Mastisol, Steri-Strips, Telfa, and Tegaderm.
All needle and sponge counts were correct. He went to his hemostasis was achieved prior to closure using surgical hemostatic material, Bovie electrocautery, as well as bipolar electrocautery. No complications were noted. This material was passed
off to pathology for permanent specimen.
Patient was then carefully positioned from the prone position to the supine position extubated. He was seen in the recovery room, which time his neurological examination remained stable compared with his preoperative neurological examination. The
patient's family was made aware of the intraoperative, as well as. Postoperative course expected, to which they expressed understanding.
The resident was middle of the case. My payroll assistant, RADHA Chambers, was necessary for vital portions of the procedure, which included positioning, dissection, suction, irrigation, retraction and suture management.
--- NOTE | 2023-07-24 14:58 | W.PN.HOSP.TC ---
Today's Communication/Plan
-
Postoperative care
Possible discharge tomorrow if stable
Assessment / Plan
Assessment / Plan
68-year-old man with lower extremity radiculopathy
Seen in [facility]. Had retention and got straight cath. No chest pain or shortness of breath
Cardiovascular system S1-S2 appreciated
Chest clear to auscultation
Abdomen soft and nontender
Lower extremity no edema
Weakness L5/S1 affecting dorsiflexion of great toe left-versus
#Lumbar radiculopathy with severe back pain
MRI with L5-S1 disc herniation
Patient does have mild dorsiflexion abnormality left foot
Continue Decadron changed to 2 mg Q8h
Continue Tylenol 1000mg TID
Continue Oxycodone 10 mg for moderate pain and Dilaudid for severe pain
#Coronary Artery Disease s/p Multiple Stents (most recent Mar 2022)
-Hold aspirin till Thursday per neurosurgeon
-Cards eval preop appreciated
#Hyperlipidemia
-Continue atorvastatin
#DVT prophylaxis: SCDs. Discussed with nursing to enforce SCds as ordered.
#Code Status: Full Code
Discussed with SIEVE MAKER
Discussed with neurosurgeon
Venous Dopplers negative
Anticipated Discharge: Within 24 hours
Subjective/Interval History
-
Date of Service: July 24, 2023
Objective Data
-
Labs:
Laboratory Results
07/24/23
08:33
PT 13.2
INR 1.02
APTT 22.8 L
Sodium 134 L
Potassium 4.5
Chloride 103
Carbon Dioxide 23
BUN 30 H
Creatinine 0.7
Glucose 128 H
Calcium 9.7
Vital Signs:
Vital Signs
Temp Pulse Resp BP Pulse Ox
97.3 F 74 13 174/90 100
06/07/24 13:55 07/24/23 13:55 07/24/23 13:55 07/24/23 13:55 07/24/23 13:55
I&O
07/23/23 07/24/23 07/25/23
06:59 06:59 06:59
Intake Total 920 / 920 660 / 660
Balance 920 / 920 660 / 660
[2023-07-24] MEDS: APRESOLINE 5 MG IV ×2 (15:13→15:21)
--- NOTE | 2023-07-24 15:54 | PTCARENOTE ---
Pt arrived to 2S in bed. Full assessment completed. LLE with weakness, NV assessment otherwise WDL. Telemetry applied. Lower mid back incision with a small amount of drainage. Bed locked and in the lowest position, safety maintained. Oriented to
room and call ramires.
--- NOTE | 2023-07-24 17:24 | W.PN.CD ---
Addendum entered and electronically signed by Hemant Gutiérrez MD 07/24/23 17:41:
Patient seen and examined in collaboration with ETL INFORMATICA DEVELOPER; agree with below.
-Patient appears to be clinically stable from a cardiac standpoint after undergoing back surgery.
-Resume aspirin when deemed safe by Neurosurgery.
-Outpatient follow-up with Cardiology.
Original Note:
Today's Communication / Plan
-
Post operative care per Neuro Surgery
Resume ASA when cleared by surgery
Impression / Plan
-
Left L5-S1 disc herniation with radiculopathy S/P Left L5-S1 laminoforaminotomy with microdiscectomy 07/24/2023 (Dr. Teresa)
-Post op care per surgery
Preop risk assessment - Lumbar microdiscectomy (07/24/2023)
-EKG with sinus bradycardia (asymptomatic).
-Echocardiogram 07/20 revealed normal cardiac function, EF 65-70%, and no significant valvulopathy.
-His activity is limited by his back pain, pre back pain exacerbation was playing pickle ball and golfing without angina
-Most recent PCI 03/2022, aspirin has been on hold since admission
-Continue monitor car operator.
-Stable from cardiac perspective to proceed with OR (elevated, but acceptable risk in setting of holding ASA with prior PCI)
Coronary artery disease
-Remains stable without chest pain.
-Left circumflex stenting in 2019.
-Stenting of RCA 03/2022, proximal LAD and proximal to mid RCA disease appears similar compared to 2019 catheterization
-On atorvastatin. Resume ASA per surgery.
Dyslipidemia, most recent LDL at goal on atorvastatin 80mg, continue
Former smoker, continued cessation recommended
Physical Exam
Vital Signs/Labs
Vital Signs
Temp Pulse Resp BP Pulse Ox
97.8 F 73 18 168/96 96
07/24/23 16:44 07/24/23 16:44 07/24/23 16:44 07/24/23 16:44 07/24/23 16:44
07/21/23 06:53
07/24/23 08:33
PT 13.2 Sec (11.4-14.6) 07/24/23 08:33
INR 1.02 07/24/23 08:33
APTT 22.8 Sec (23.4-35.0) L 07/24/23 08:33
Physical Exam
Constitutional: No acute distress and Comfortable
EENT: Anicteric and Moist mucous membranes
Cardiovascular: Rhythm & rate is regular, Pedal edema is absent, S1S2 is normal and Murmur/rub/gallop absent
Respiratory: Respiratory effort normal and Lungs clear to auscul.
GI: Soft, Distention absent, Flat and Non tender
Neuro/Psych: AO x 3
Other: Skin (warm and dry without edema)
Data Reviewed
-
Date of Service: July 24, 2023
EKG: Report Reviewed by me
Labs: Labs Reviewed by me
[2023-07-24] MEDS: ANCEF 10 IV (20:53)
[2023-07-24] MEDS: XALATAN OPHTHALMIC SOLUTION 1 DROP BOTH EYES (21:57)
[2023-07-25] MEDS: DECADRON 2 MG IV ×2 (01:57→09:38)
[2023-07-25] MEDS: ROXICODONE 10 MG PO ×3 (04:05→13:12)
[2023-07-25] MEDS: ANCEF 10 IV ×2 (04:11→12:40)
[2023-07-25 07:50] VITALS: BP 146/88
[2023-07-25] MEDS: FLEXERIL 5 MG PO (08:11)
[2023-07-25] MEDS: LIPITOR 80 MG PO (08:11)
[2023-07-25] MEDS: TYLENOL 1000 MG PO ×2 (08:12→16:01)
[2023-07-25] MEDS: COLACE 100 MG PO (08:12)
[2023-07-25] MEDS: SENOKOT 17.1999999999999993 MG PO (08:12)
[2023-07-25] MEDS: MIRALAX 17 GRAMS PO (08:15)
--- NOTE | 2023-07-25 10:53 | W.PN.HOSP.TC ---
Addendum entered and electronically signed by Jovanni Brown MD 07/25/23 15:35:
Discussed with nursing PT OT ordered
Discussed with neurosurgery okay for discharge on Medrol Dosepak and also narcotics with follow-up in 2 weeks
Patient had a small bowel movement
total discharge coordination time 37 minutes
Addendum entered and electronically signed by Jovanni Brown MD 07/25/23 14:47:
Dictation- [id number]
Original Note:
Today's Communication/Plan
-
Mag citrate
Possible discharge today
Assessment / Plan
Assessment / Plan
68-year-old man with lower extremity radiculopathy
Feels well. Ambulating in the room and fowler
No RUQ pain
Feels like he is constipated thought has had small BMS
Lumbar spine dressing with some blood
Ambulating well
Abdomen - Soft NT
Weakness L5/S1 affecting dorsiflexion of great toe left-same
#Lumbar radiculopathy with severe back pain
MRI with L5-S1 disc herniation
Patient does have mild dorsiflexion abnormality left foot
Change Decadron to Prednisone
Continue Tylenol 1000mg TID
Continue Oxycodone mg for moderate pain
#Coronary Artery Disease s/p Multiple Stents (most recent Mar 2022)
-Hold aspirin till Thursday per neurosurgeon
-ECHO Normal
#Hyperlipidemia
-Continue atorvastatin
#DVT prophylaxis: SCDs.
#Code Status: Full Code
Anticipated Discharge: Today
Subjective/Interval History
-
Date of Service: July 25, 2023
Objective Data
-
Vital Signs:
Vital Signs
Temp Pulse Resp BP Pulse Ox
98.1 F 69 17 146/88 99
07/25/23 07:50 07/25/23 07:50 07/25/23 07:50 07/25/23 07:50 07/25/23 08:00
I&O
07/24/23 07/25/23 07/26/23
06:59 06:59 06:59
Intake Total 660 / 660 920 / 920
Output Total 300 / 300
Balance 660 / 660 620 / 620
[2023-07-25] MEDS: CITROMA 300 ML PO (10:58)
[2023-07-25 11:40] VITALS: BP 162/95
--- NOTE | 2023-07-25 15:22 | PN.NS ---
Subjective
-
Patient seen and examined. Reports left lower extremity radicular pain significantly improved. Does have numbness along the left posterior thigh.
Physical Exam
-
Exam:
Awake, alert, no apparent distress.
Cranial nerves II to XII are grossly intact
Motor: 5/5 strength bilaterally in upper and lower extremities.
Incision: Dressing changed, Steri-Strips intact. Blood-tinged. Dried blood.
Able to stand, and ambulate without assistance
Problems
-
Problem Status Onset Code
Sciatica M54.30
Assessment / Plan
-
Postoperative day 1, status post left L5-S1 microdiscectomy.
Doing well, okay to discharge from neurosurgical standpoint.
Patient can be transitioned from dexamethasone to Medrol Dosepak on discharge.
10 to 14-day prescription for pain medications, muscle relaxants as needed.
Follow-up in the office in approximate 2 weeks.
Patient can go home per my specialty: Today
Today's Communication
-
Discussed with patient, , and hospitalist
--- NOTE | 2023-07-25 15:34 | W.[place]-PDMP ---
[place]-PD[place]
-
Checked the [place]- Prescription Drug Monitoring Program website, no red flags identified; safe to proceed with prescription.
[2023-07-25 16:09] VITALS: BP 151/87
--- NOTE | 2023-07-25 16:31 | CM ---
Patient has been medically cleared for discharge to home with no additional skilled services. VN was offered but patient declined. 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
--- NOTE | 2023-07-28 15:08 | W.DS.TRANS ---
DC Summary - Upfitter
-
Discharge Instructions:
Discharge Diagnosis/Procedures L5-S1 laminal foraminotomy and microdiscectomy,
coronary artery disease, hyperlipidemia
Diet As tolerated
Activity Other activity
Additional Activity Follow postoperative instructions
Driving Restrictions No driving until you follow-up with Dr. Masters
Instructions: Minimally Invasive Spine Surgery (DC)
Stand-Alone Forms:
Changes to Home Medications: Yes
Discharge Medications:
DC Medications w/original date entered in [facility]
aspirin 81 mg tablet,delayed release (Adult Aspirin Regimen) 81 mg PO DAILY Blood Clot Prevention/Tx 12/27/18
cholecalciferol (vitamin D3) 25 mcg (1,000 unit) capsule (Vitamin D3) 1,000 unit PO DAILY Supplement 12/27/18
omega 1-hxv-eli-fish oil 300 mg-1,000 mg capsule (Fish Oil) 2 ea PO DAILY Supplement 12/27/18
nitroglycerin 0.4 mg sublingual tablet 0.4 mg sublingual [id number] PRN chest pain #25 tabs 04/04/22
acetaminophen 500 mg tablet (Tylenol Extra Strength) 1,000 mg PO Q6HPRN PRN mild pain 07/20/23
atorvastatin 80 mg tablet 80 mg PO DAILY High Cholesterol 07/20/23
cyanocobalamin (vitamin B-12) 1,000 mcg tablet 1,000 mcg PO DAILY Supplement 07/20/23
latanoprost 0.005 % eye drops 1 drp BOTH EYES HS Eye Condition 07/20/23
docusate sodium 100 mg capsule 100 mg PO BID Constipation #0 caps 07/24/23
polyethylene glycol 3350 17 gram oral powder packet (HealthyLax) 17 g PO DAILY Constipation #0 ea 07/24/23
sennosides 8.6 mg tablet (Senna Laxative) 17.2 mg (2 x 8.6 mg) PO BID PRN when you take narcotics #0 tabs 07/24/23
acetaminophen 500 mg tablet (Tylenol Extra Strength) 1,000 mg (2 x 500 mg) PO Q6H PRN mild pain #30 tabs 07/25/23
methylprednisolone 4 mg tablets in a dose pack (Methylpred DP) See Rx Instructions PO .COMPLEX back #21 ea 07/25/23
oxycodone 10 mg tablet 10 mg PO Q8H PRN Pain #30 tabs 07/25/23
Home Medication Changes
new
docusate sodium 100 mg capsule 100 mg PO BID Constipation #0 caps 07/24/23
polyethylene glycol 3350 17 gram oral powder packet (HealthyLax) 17 g PO DAILY Constipation #0 ea 07/24/23
sennosides 8.6 mg tablet (Senna Laxative) 17.2 mg (2 x 8.6 mg) PO BID PRN when you take narcotics #0 tabs 07/24/23
acetaminophen 500 mg tablet (Tylenol Extra Strength) 1,000 mg (2 x 500 mg) PO Q6H PRN mild pain #30 tabs 07/25/23
methylprednisolone 4 mg tablets in a dose pack (Methylpred DP) See Rx Instructions PO .COMPLEX back #21 ea 07/25/23
oxycodone 10 mg tablet 10 mg PO Q8H PRN Pain #30 tabs 07/25/23
Pending Results: No
== END 2023-07-25 16:36 | disposition home or self-care (01) | DRG 520 ==
LOC: 2 SOUTH 16:37
PROVIDERS: Nurse Practitioner; Physician Assistant Medical; ADMITTING PHYSICIAN Hospitalist; CONSULT PHYSICIAN Neurological Surgery; EMERGENCY PHYSICIAN Emergency Medicine; FAMILY PHYSICIAN Internal Medicine; OTHER PHYSICIAN Internal Medicine
PROC: 0ST40ZZ Resection of Lumbosacral Disc, Open Approach (ICD-10-PCS; 2023-07-24)
PROC: 01NB0ZZ Release Lumbar Nerve, Open Approach (ICD-10-PCS; 2023-07-24)
DX: M51.17 Intervertebral disc disorders with radiculopathy, lumbosacral region (principal); M48.061 Spinal stenosis, lumbar region without neurogenic claudication; I25.10 Atherosclerotic heart disease of native coronary artery without angina pectoris; I10 Essential (primary) hypertension; E78.00 Pure hypercholesterolemia, unspecified; Z95.5 Presence of coronary angioplasty implant and graft; Z79.82 Long term (current) use of aspirin; Z79.02 Long term (current) use of antithrombotics/antiplatelets; Z79.52 Long term (current) use of systemic steroids; Z87.891 Personal history of nicotine dependence
CPT/HCPCS: 88304; 88311; 72100; 72148; 76000; 80048; 80053; 81003; 81015; 85025; 85027; 85610; 85730; 93005; 93306; 93971; 96374; 96375; 97116; 97163; 97164; 97166; 97168; 97535; 99285